=== PATIENT | male | born 1980 | race Caucasian/White ===

== ENCOUNTER 2016-12-30 07:32 | Emergency (ER) | payer OTHER ==
[2016-12-30] MEDS ORDERED: SULFAMETH/TRIMETH DS 800/160 MG TABLET PO STA (08:05)
[2016-12-30] MEDS ORDERED: CEPHALEXIN 250 MG CAPSULE PO STA (08:05)
[2016-12-30] MEDS ORDERED: CEPHALEXIN 250 MG CAPSULE PO ONE (08:12)
[2016-12-30] MEDS ORDERED: SULFAMETH/TRIMETH DS 800/160 MG TABLET PO ONE (08:12)
--- NOTE | 2016-12-30 08:18 | XRAY Preliminary Report ---
Exam: XR Toe(s) RT IMPRESSION: Negative right great toe radiography. [facility] SITE ID: [id number]
--- NOTE | 2016-12-30 08:20 | XRAY Report ---
EXAM: RIGHT GREAT TOE RADIOGRAPHY EXAM DATE: 12/30/2016 08:09 AM. CLINICAL HISTORY: Great toe infection. COMPARISON: None. TECHNIQUE: 3 views. FINDINGS: Bones: No fracture or bone lesion. Joints: No subluxations. Soft Tissues: No foreign body or soft tissue swelling. IMPRESSION: Negative right great toe radiography. [facility] Referring Provider Line: [phone] SITE ID: [id number]
--- NOTE | 2016-12-30 08:37 | ED Physician Documentation ---
History of Present Illness - Stated complaint Stated Complaint: TOE INJURY - Chief complaint Chief Complaint: Ext Problem - History obtained from History obtained from: Patient - Additonal information Additional information: Patient is well-appearing 36-year-old man who presents with a complaint of right toe pain, swelling, and redness. This has been ongoing issue for a couple weeks. He has to work on his foot and often wears a boot. It is been red and swollen has been trying to soak it without any significant improvement. Initially it started on the medial side noticed extended to the lateral side as well. Review of systems: For pertinent positive and negatives in the review of systems please see the history of present illness, otherwise all other systems have been reviewed and are negative. Dragon disclaimer: Parts of this medical record were created using voice recognition technology. Because of the inherent limitations of this system, occasional same sounding word substitutions do occur and persist despite proofreading. Please read the document for context. Review of Systems Constitutional: denies: Fever, Chills Musculoskeletal: reports: Extremity pain PD PAST MEDICAL HISTORY - Past Medical History Past Medical History: No - Past Surgical History Past Surgical History: Yes - Present Medications Home Medications: Ambulatory Orders Medication Instructions Recorded Confirmed Cephalexin [Keflex] 1,000 mg PO BID #20 capsule 12/30/16 Mupirocin Calcium [Bactroban] 1 applic TP BID #30 cream..g. 12/30/16 Sulfamethox/Trimeth 800/160 1 each PO BID #10 tablet 12/30/16 [Bactrim Ds 800/160] - Allergies Allergies/Adverse Reactions: Allergies Allergy/AdvReac Type Severity Reaction Status Date / Time No Known Drug Allergies Allergy Verified 12/30/16 07:37 - Social History Does the pt smoke?: No Smoking Status: Never smoker Does the pt drink ETOH?: No Does the pt have substance abuse?: No - Immunizations Immunizations are current?: Yes PD ED PE NORMAL - Vitals Vital signs reviewed: Yes - General General: Alert and oriented X 3, No acute distress, Well developed/nourished - Extremities Extremities: Other (Patient is a well-appearing young man with erythema around the base of the nailbed of the right great toe. There is a small area of whiteness at the nail bed medially. There is no obvious paronychia or herpetic amy. The cuticle is red, raised and inflamed.) Results - Vitals Vitals: Vital Signs - 24 hr 12/30/16 07:35 Temperature 36.4 C L Heart Rate 59 L Respiratory 16 Rate Blood Pressure 121/80 O2 Saturation 100 Oxygen O2 Source Room air PD MEDICAL DECISION MAKING - ED course ED course: Patient presents with a red swollen tender right great toe. Was seen infection is along the base of the cuticle bilaterally. A small hole was made in the base of the nailbed since her appeared to be underlying pus. There is no pus obtained. X-rays of the toe were performed there is no evidence of fracture or osteomyelitis. The toe was gently cleansed and mildly debrided and scrubbed with chlorhexidine. Bacitracin and a sterile bandage was placed over. He will be placed on Bactrim and Keflex dual therapy for staph and strep. Expect him to get better quickly. Disposition: To home Clinical impression: 1. Cellulitis right great toe without evidence of paronychia Departure - Departure Disposition: 01 Home, Self Care Clinical Impression: Cellulitis of toe of right foot Condition: Good Instructions: ED Infec Skin Cellulitis Prescriptions: Sulfamethox/Trimeth 800/160 [Bactrim Ds 800/160] 1 each PO BID #10 tablet Mupirocin Calcium [Bactroban] 1 applic TP BID #30 cream..g. Cephalexin [Keflex] 1,000 mg PO BID #20 capsule
[2016-12-30 08:43] VITALS: BP 118/68
== END 2016-12-30 08:46 | disposition home or self-care (01) ==
LOC: ED 07:32
DX: L03.031 Cellulitis of right toe (principal)
CPT/HCPCS: 73660; 99283; A9270

== ENCOUNTER 2019-04-23 09:41 | Outpatient (CLI) | payer OTHER ==
[2019-04-23 10:01] VITALS: BP 114/83
--- NOTE | 2019-04-23 10:02 | SLEEP CARE CONSULTATION ---
Information from patient questionnaire entered by Laquita Ramos. I have reviewed and concur with the information entered by Laquita Ramos. This document represents the service I personally performed and the decisions made by me, Tenisha Amor MD, [facility]. History of Present Illness Reason for Visit: New patient Chief Complaint: reports: Snoring, Fatigue Duration of Symptoms: 3-4 years Usual bedtime: 2200 Time it takes to fall asleep: under 5 minutes Snores at night: Yes Observed to quit breathing while asleep: Yes Sleeps alone due to snoring: No Number of times waking at night: 2-3 Reasons for waking at night: reports: Pain, Other (stress, my mind sometimes doesn't stop thinking) Toss, Turn, or Twitch while sleeping: Yes Recalls having dreams: No Usually gets out of bed at: 0326-1237 Feels refreshed in the morning: No Morning headache: No Sleepy or fatigued during the day: Yes Ever fallen asleep while driving: No Takes day naps: No Dreams during day naps: No Prior sleep studies: No Additional HPI information: I had the pleasure of seeing Mr. Cheney today regarding the possibility of him having a sleep disorder. As you know, he is a 39 year old gentleman who complains of persistent fatigue and loud snore for the past 3 4 years. The patient tells me that he normally goes to bed around 10 pm, and it takes him approximately 5 minutes to fall asleep. He has been told that he snores loudly and irregularly at night. He has also been observed to stop breathing in his sleep. His has to sleep in a separate room. He can recall waking up on the average of 2 - 3 times during the night. Most of the time he wakes up because of pain. He has awakened occasionally because of his own snoring, choking, and having to gasp for air. There is not a lot of tossing and turning in his sleep. He has somniloquy (sleep talking) but not somnambulism (sleep walking). Generally he can recall having dreams. In the morning he usually gets up out of the bed around 6 - 7 a.m. not feeling refreshed nor rested. He usually does not have a morning headache. During the day he complains of feeling sleepy and fatigued. His score on [place] Sleepiness Scale is 13 out of 24. He has never fallen asleep while driving nor has had any accident due to sleepiness. He usually does not take naps during the day. Upon falling asleep during the day he denies having vivid dreams. He has never had sleep paralysis, experienced cataplexy or symptoms of restless leg syndrome. He reports having impaired concentration during the day. 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 Patient is and lives in [place]. Have you smoked in the past 12 months: Yes Cigarettes per day (20/pack): 20 Years of smokin Quit date: 2008 Smoking Pack Years: 15.0 Alcohol use: Yes Alcohol amount and frequency: 1-2 glasses, 1-2 times/week Caffeine use: Yes Caffeine amount and frequency: 2 cups/day Family History Family history of sleep disordered breathing: Yes Family Hx Sleep Apnea: Father: Snoring, Sibling: Snoring Allergies and Home Medications Drug allergies reviewed: Yes Home medication list reviewed: Yes Allergy and home medication list: NONE Review of Systems Weight gain over past 5 years: 25 Cardiovascular: denies: high blood pressure, palpitations, chest pain, irregular heart rate or pulse, leg or foot swelling, have to sleep sitting up, other Respiratory: denies: shortness of breath, wheeze, sputum production, chronic cough, other Gastrointestinal: denies: heartburn, difficulty swallowing, nausea, vomitting, diarrhea, abdominal pain, other Urinary: denies: incontinence, frequency, urgency, impotence, other Neurological: denies: headaches, seizure, head trauma, disorientation, speech dysfunction, gait or balance problems, fainting or unconsciousness, other Psychiatric: denies: Attention Deficit Hyperactivity, anxiety, depression, mood disorder, claustrophobia, other Ear/Nose/Throat: reports: wisdom teeth removed Endocrine: denies: thyroid disease, history of goiter, sluggishness, too hot or cold, excessive thirst, increased appetite, increased urination, unexplained weakness, other Musculoskeletal: reports: other (sore shoulder) Immunologic: reports: sneezing, other (excema) Physical Exam Vital signs obtained and entered by: Dr. Amor Blood Pressure: 114/83 Cuff size: regular Heart Rate: 63 O2 Saturation: 97 Height: 6 ft Weight: 215 lb Body Mass Index: 29.1 BMI Classification: Overweight Neck circumference: 16.5 Mood/affect: normal HEENT: No craniofacial malformation Nostrils: patent to airflow Turbinates: normal Septum: midline Mouth and throat: narrow oropharynx Soft palate: long Hard palate: normal Uvula: normal Uvula visualization: 25% Mallampati Class III Tongue: normal in size Tonsils: small Chin and jaw: Retrognathia Neck: normal w/o lymphadenopathy or thyromegaly Heart: regular rate and rhythm Lungs: clear bilaterally Abdomen: soft, non-tender Extremities: no edema or clubbing Neurologic: intact, no focal deficits Impression and Plan IMPRESSION: 1. Obstructive Sleep Apnea-Hypopnea Syndrome, as suggested by history of loud and irregular snoring, observed cessation of breath while asleep, frequent awakenings during the night, unrefreshed sleep, cognitive impairment, and daytime hypersomnolence. Narrow oropharynx and obesity are common predisposing factors for obstructive sleep apnea-hypopnea syndrome. Pathophysiology of sleep-disordered breathing was discussed. I recommend proceeding to polysomnography to confirm the diagnosis and to assess severity. If he has significant sleep disordered breathing, a manual CPAP titration study will also be performed to find the optimal treatment pressure. I informed the patient of what the sleep studies involve and after some discussion, he agreed to proceed. Plan: 1. Schedule polysomnography + manual CPAP titration study and return in 1 to 2 weeks after the study to discuss result and initiate therapy. 2. Avoid long distance driving or when feeling sleepy. 3. Avoid alcohol, sedative and muscle relaxant around bedtime. 4. Attempt to lose weight. I spent 100% of this 20 minute visit face to face with the patient with greater than 50% of this was spent time counseling the patient and coordination of care.
== END 2019-04-23 09:42 | disposition home or self-care (01) ==
LOC: SC 09:41
PROVIDERS: ATTEND Internal Medicine Pulmonary Disease
DX: R06.83 Snoring (principal); G47.8 Other sleep disorders; R06.81 Apnea, not elsewhere classified; R41.89 Other symptoms and signs involving cognitive functions and awareness; G47.10 Hypersomnia, unspecified
CPT/HCPCS: 99203; 99212

== ENCOUNTER 2019-05-10 20:26 | Outpatient (CLI) | payer OTHER | END 2019-05-10 20:27 | disposition home or self-care (01) | LOC: SC 20:26 | PROVIDERS: ATTEND Internal Medicine Pulmonary Disease | DX: G47.61 Periodic limb movement disorder (principal); R06.83 Snoring; G47.10 Hypersomnia, unspecified | CPT/HCPCS: 95810 ==

== ENCOUNTER 2019-06-11 14:26 | Outpatient (CLI) | payer OTHER ==
[2019-06-11 15:37] VITALS: BP 110/70
--- NOTE | 2019-06-11 15:37 | SLEEP CARE CONSULTATION ---
Information from patient questionnaire entered by Laquita Ramos. I have reviewed and concur with the information entered by Laquita Ramos. This document represents the service I personally performed and the decisions made by me, Andreea Mendez RN, MSN, [employer]. History of Present Illness Initial [place] Sleepiness Scale score: 13 Current [place] Sleepiness Scale score: 6 Additional HPI information: [facility] returns for follow up of the recently performed polysomnography. I explained the pathophysiology behind obstructive sleep apnea. Patient does not have sleep apnea and was advised how weight gain could increase the risk of developing sleep apnea in the future. I strongly encouraged the patient to lose weight. Patient has moderate snoring. Snoring can be reduced by weight loss. Weight loss is best achieved with diet consult. Patient instructed to contact PCP for referral. Snoring can also be treated with an oral appliance from a dentist. He is not interested. In addition, an ENT evaluation can be do to see if other treatment is indicated. Patient counseled not drink alcohol less than 4 hours before bedtime as it can increase snoring and apnea. Patient was cautioned about risks of drowsy driving until sleepiness symptoms resolve. Patient denies drowsy driving. Sleep Study - Results Polysomnography/Home Sleep Study results: The quality of the study is good. The patient had normal sleep efficiency. The sleep architecture was normal as well. Respiratory monitoring showed no significant sleep disordered breathing (AHI = 1.3) or hypoxia (layla oxygen saturation of 90%). The patient slept adequately in supine position (supine AHI = 1.5; nonsupine = 0.62). Snore was moderate in intensity. There was mild periodic leg movement of sleep not associated with sleep fragmentation. Cardiac rhythm was normal sinus rhythm without significant arrhythmia. No abnormal behavior (parasomnia) observed during the night. Allergies and Home Medications Known drug allergies: No Home medication list reviewed: No (none) Review of Systems Review of systems same as previous: Yes Physical Exam Blood Pressure: 110/70 Cuff size: long Heart Rate: 64 O2 Saturation: 98 Height: 6 ft Weight: 220 lb 6.4 oz Body Mass Index: 29.9 BMI Classification: Overweight Impression and Plan 1.Snoring but no significant sleep disordered breathing. Patient advised that often weight loss will reduce snoring as well as apnea risk. An oral appliance can also be used for snoring. This would require a dental consultation. Patient cautioned not to use other online appliances as can cause bite issues. Patient is not interested at this time for an oral appliance. An ENT consult can also be helpful to determine if any other treatment is an option. Patient advised to contact his PCP if he would like to pursue this evaluation. 2 Periodic limb movement, mild, that did not fragment patients sleep. Periodic limb movement of sleep (PLMS) is characterized by episodes of repetitive limb movements that occur during sleep and usually involve the lower limbs. The etiology is unknown but can be associated with restless leg syndrome (RLS), neuropathy, spinal cord diseases, kidney disease, rheumatological disorders, narcolepsy, obstructive sleep apnea, and REM sleep behavior disorder. Other factors that can increase PLMS and/or RLS are heredity and iron deficiency as reflected by a low serum ferritin level below 50 to 75mcg / L. Several medications can precipitate or aggravate PLMS such as selective serotonin re- uptake inhibitor antidepressants, tricyclic antidepressants, lithium, and dopam ine receptor antagonists with the exception of bupropion. Caffeine can also aggravate PLMS and should be avoided. Sleep hygiene methods can also improve sleep as well as lifestyle changes such as regular exercise. Patient was advised that no treatment is needed at this time. If symptoms increase, then further evaluation is indicated. * Attempt to lose weight * Avoid alcohol consumption near bedtime * The patient is cautioned about driving until sleepiness is completely resolved. * Return as needed. Time Spent with Patient (minutes): 20 I spent 100% of this visit face to face with the patient with greater than 50% of this was spent time counseling the patient and coordination of care.
== END 2019-06-11 14:27 | disposition home or self-care (01) ==
LOC: SC 14:26
PROVIDERS: ATTEND Nurse Practitioner Family
DX: R06.83 Snoring (principal); G47.61 Periodic limb movement disorder
CPT/HCPCS: 99212; 99213